=== PATIENT | male | born 1955 | race Caucasian/White ===

== ENCOUNTER 2020-04-28 07:59 | Day surgery (SDC) | payer MEDICARE ==
[~2020-04-28 07:59] MED LIST: Metoclopramide 10 MG/2 ML SDV IV PRN; Sodium Chloride 0.9% 1,000 ML IV SCH
[2020-04-28] MEDS ORDERED: Propofol 1,000 MG/100 ML SDV ONE (09:30)
[2020-04-28 09:55] VITALS: BP 140/86; PULSE 63
--- NOTE | 2020-04-28 17:53 | OR ---
DATE OF OPERATION: 04/28/2020 SURGEON: Brian Power MD PREOPERATIVE DIAGNOSIS: Surveillance colonoscopy. POSTOPERATIVE DIAGNOSIS: Surveillance colonoscopy. PROCEDURE: Colonoscopy. ANESTHESIA: MAC. ESTIMATED BLOOD LOSS: None. COMPLICATIONS: None. INDICATION FOR THE PROCEDURE: The patient is a 64-year-old male who is here for surveillance colonoscopy. Last colonoscopy was 5 years ago, was normal. He was found to have a polyp on his previous colonoscopy. Denies any change in bowel habits since that time. DESCRIPTION OF PROCEDURE: Informed consent was obtained from the patient. The patient was taken to the operating room, placed on table in left lateral decubitus position. Monitored anesthesia care was administered. Digital rectal exam performed, it was normal. Colonoscope was then advanced through the anus directed toward the cecum. Cecum was reached and identified by appendiceal orifice and ileocecal valve. Colonoscope then slowly withdrawn. No polyps. No masses. No areas of ischemia or inflammation, only AV malformations. No diverticula noted. Colonoscope was then slowly withdrawn. Rectum was also otherwise unremarkable. Colonoscope removed. FINDINGS: Normal colonoscopy. RECOMMENDATIONS: I would recommend repeat screening colonoscopy in 10 years. JESSICA/ALEXANDER /[id number]
== END 2020-04-28 11:10 | disposition home or self-care (01) ==
LOC: LB.SDS 07:59
PROVIDERS: ATTEND Surgery
DX: Z12.11 Encounter for screening for malignant neoplasm of colon (principal); E11.9 Type 2 diabetes mellitus without complications; I10 Essential (primary) hypertension; Z86.010 Personal history of colon polyps; Z98.890 Other specified postprocedural states
CPT/HCPCS: 82962; G0105; J2704; J7030; G0121